=== PATIENT | female | born 1990 | race Caucasian/White ===

== ENCOUNTER → 2018-09-29 10:06 | Outpatient (CLI) | payer BC, SELFPAY ==
[2018-09-29 09:34] VITALS: BMI 40.7
[2018-09-29 11:21] LABS: Follicle Stimulating Hormone 4.1 mIU/mL
[2018-10-01 14:07] LABS: DHEA Sulfate 240.8 ug/dL (84.8-378.0)
[2018-10-02 16:55] LABS: Testosterone Free 1.9 pg/mL (0.0-4.2)
[2018-10-06 11:53] LABS: 17-Hydroxyprogesterone 34 ng/dL (.)
== END ==
PROVIDERS: Family Provider Family Medicine; PCP Family Medicine; Visit Provider Obstetrics & Gynecology
DX: N92.6 Irregular menstruation, unspecified (principal)
CPT/HCPCS: 36415; 82627; 83001; 83498; 84402; 82626

== ENCOUNTER → 2018-10-08 12:26 | Outpatient (CLI) | payer BC, SELFPAY ==
[2018-09-29 09:34] VITALS: BMI 40.7
--- NOTE | 2018-10-08 12:35 | US_ITS ---
STUDY: ULTRASOUND TRANSVAGINAL CLINICAL: Female, 28 years old. Irregular menses. TECHNIQUE: Transvaginal COMPARISON: None. FINDINGS: Normal uterine size measuring 6.8 cm in maximal craniocaudal dimension. There are no myometrial masses. The myometrium is slightly heterogenous. Normal endometrial thickness measuring 6.3 mm. There are no endometrial masses, and there is no fluid in the endometrial cavity. There are nabothian cysts present. Normal right ovary, measuring 3.4 x 2.3 x 2.1 cm. There are multiple follicles without a dominant cyst. Normal left ovary, measuring 3.2 x 2.1 x 2.3 cm. There are multiple follicles without a dominant cyst. There is no free fluid in the pelvis. Polycystic ovary disease: No. US/Transvaginal Non- IMPRESSION: Mildly heterogenous myometrium may be secondary to underlying adenomyosis. Electronically Signed: Jael Marrero MD at 16:09 EDT Tel , Service support ,
== END ==
PROVIDERS: Family Provider Family Medicine; PCP Family Medicine; Referring Provider Obstetrics & Gynecology; Visit Provider Obstetrics & Gynecology
DX: N92.6 Irregular menstruation, unspecified (principal)
CPT/HCPCS: 76830; 93976

== ENCOUNTER → 2020-10-10 13:34 | Outpatient (CLI) | payer BC, SELFPAY ==
[2018-09-29 09:34] VITALS: BMI 40.7
--- NOTE | 2020-10-10 14:05 | RAD_ITS ---
STUDY: X-RAY - CERVICAL SPINE REASON FOR EXAM: Female, 30 years old. NECK PAIN TECHNIQUE: 5 view(s) of the cervical spine were obtained. COMPARISON: None FINDINGS: Normal anterior atlantoaxial articulation. Normal odontoid process. Normal cervical lordosis. Normal vertebral bodies and endplates. Normal disc space heights. Normal visualized intervertebral neuroforamina. The soft tissue structures are unremarkable. RAD/Cerv Spine 2 or 3 Views IMPRESSION: Normal x-ray examination of the visualized cervical spine. Electronically Signed: Ulices Calderon DO at 22:47 EDT Tel , Service support ,
--- NOTE | 2020-10-10 14:10 | RAD_ITS ---
STUDY: X-RAY - LUMBAR SPINE REASON FOR EXAM: Female, 30 years old. BACK PAIN TECHNIQUE: 3 view(s) of the lumbar spine were obtained. COMPARISON: None FINDINGS: Normal lumbar lordosis. There is no substantial scoliosis. There is a normal alignment of the vertebrae. Normal vertebral bodies and endplates. Normal disc space heights. The soft tissue structures are unremarkable. RAD/Lumbar Spine 2 or 3 Views IMPRESSION: Normal x-ray examination of the lumbar spine. Electronically Signed: Ulices Calderon DO at 22:47 EDT Tel , Service support ,
[2020-10-10 14:46] LABS: Amphetamine Urine VISTA NEGATIVE (<1000 ng/mL); Barbiturate Urine VISTA NEGATIVE (< 200 ng/mL); Benzodiazepine Urine VISTA NEGATIVE (< 200 ng/mL); Cocaine Urine VISTA NEGATIVE (< 300 ng/mL); Ecstacy Urine VISTA POSITIVE (< 500 ng/mL); Methadone Urine VISTA NEGATIVE (< 300 ng/mL); PCP Urine VISTA NEGATIVE (< 25 ng/mL); THC Urine VISTA NEGATIVE (< 50 ng/mL); Vista UDS pH Range 6
== END ==
PROVIDERS: PCP Family Medicine; Referring Provider Anesthesiology Pain Medicine; Visit Provider Anesthesiology Pain Medicine
DX: M54.2 Cervicalgia (principal); M54.9 Dorsalgia, unspecified; F11.20 Opioid dependence, uncomplicated
CPT/HCPCS: 72040; 72100; 80307

== ENCOUNTER 2021-01-16 08:30 | Outpatient (RCR) | payer BC, OTHER, SELFPAY ==
[2018-09-29 09:34] VITALS: BMI 40.7
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
--- NOTE | 2021-01-03 14:02 | HP.PTREVAL ---
Dr. Pia Burns MD, It has been my pleasure to treat KYM KEVIN over the last 10 visits for LUMBAR AND LUMBOSACRAL RADICULOPATHY.. Please see the progress note below for an update on the physical therapy plan of care! Subjective: PATIENT REPORTS SHE STACKED HER DAYS AT WORK AND SHE IS HAVING A LOT OF PAIN. BETWEEN WORK, PAIN AND LIFE HAS NOT BEEN DOING HER HOME EX'S. PATIENT REPORTS SHE IS STILL BETTER OVER-ALL SINCE STARTING PT. DEFINATELY HAS DECREASED PAIN WHEN SHE IS ABLE TO FOLLOW HOME INSTRUCTIONS AND DO HEP BUT LATELY LIFE HAS BEEN TOO BUSY. INFORMATION GATHERED TODAY FOR NECK ASSESSMENT: DX: NECK PAIN. Present symptoms: NECK AND FALGUNI SHLD PAIN. FALGUNI UE PAIN, NUMBNESS AND TINGLING TO HANDS AND FINGERS. SOMETIMES SHOOTING PAINS. I DROP STUFF A LOT. Present since: 2013. Pain Scale: Worst - 10/10 Least - 4/10. Commenced as a result of: SLIPPED AND FELL INTO PANTRY ON LEFT SHLD. Symptoms at onset: L SHLD. Worse: SITTING UP, JUST THE WEIGHT OF MY NECK AND HEAD ON MY SHOULDERS HURT. Better: LYING DOWN WITH NECK SUPPORTED ON PILLOW. Disturbed sleep: YES. Previous history/Previous treatment: NO NECK SURGERY. PT HERE AT [facility]. MASSAGE. CHIROPRACTOR - LAST VISIT APPROX 2017. INTRAMUSCULAR UT INJECTIONS AFLGUNI NECK OCTOBER 2020 AND ONE KARLOS C6C7 DECEMBER [address] BURNS WITH INCREASED PAIN AFTER. DOES NOT FEEL THE KARLOS HELPED. STATES SHE IS STILL HAVING A LOT OF EXACERBATIONS. CONSULT WITH DR. MOROCHO - REFERRED TO [facility] BUT PATIENT DID NOT FOLLOW THROUGH. Dizziness: YES. Tinnitis: SOMETIMES. PATIENT HAS MINERES DZ. Nausea: YES. Shortness of Breath: ASTHMA. Difficulty Swollowing: REFLUX? PATIENT REPORTS SHE HAS HAD A SCOPE. Imaging: NO MRI. RECENT NECK X-RAYS - NORMAL PER PATIENT REPORT. Objective/Function: Sitting Posture/Standing Posture: FH. RS'S. Active Correction of posture: WORSE. 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 FALGUNI UE'S 5/5 WITH MMT'ING EXCEPT SHLD GIRDLES 4-/5. Sensory deficit: FALGUNI UE LIGHT TOUCH SENSATION INTACT AND SYMMETRICAL TODAY. ROM deficit: TIGHTNESS IN FALGUNI SHLDS WITH APPROX 25% DECREASED ELELVATION. Reflexes: FALGUNI UE'S 2/3. Dural Signs: POSITIVE FALGUNI UE'S. Cervical Mvmt Loss: Flex: MIN. Pro: NIL. Ext: MOD. Ret: MOD. RSB: MOD. LSB: MOD. R Rot: MOD. L Rot: MIN. PATIENT C/O INCREASED PAIN WITH CERVICAL ROM TESTING ALL PLANES. Postural strength: POOR. Palpation: NO ACUTE PAIN WITH LIGHT PALPATION OF UPPER THORACIC AND CERVICAL SPINE BUT INCREASED FALGUNI CERVICAL MUSCULATURE THROUGHOUT. TREATMENT: NEUROMUSCULAR REEDUCATION - INTRO TO RETRAINING OF MVMT AND POSTURE FOR SITTING, LYING AND STANDING ACTIVITIES. PATIENT TOLERATED ALL INTERVENTIONS WELL TODAY AND REPORTED DECREASED PAIN POST SESSION. Plan Plan: CONSIDER US AND E-STIM TO CERVICAL REGION. CERVICAL STRETCHING AND STRENGTHENING TOLERATED. SCAPULAR STRENGTHENING AND STABILITY EX. US TO LOW BACK. POSTURE CORRECTION/STRENGTHENING, INSTRUCTION IN APPROPRIATE BODY MECHANICS AND ACTIVITY MODIFICATIONS. DLS STARTING WITH A NEUTRAL SPINE PROGRESSING ROM TOLERATED. FALGUNI LE ROM, STRETCHING AND STRENGTHENING. HEP INSTRUCTION. Goals Goal 1:: DECREASE C/O NECK, UE, LOW BACK AND FALGUNI LE SX'S. Goal Time Frame: 4-6 Weeks Goal 2:: IMPROVE SITTING, STANDING, WALKING, PERSONAL CARE, LIFTING, SLEEP, SOCIAL LIFE, TRAVEL, WORK AND HOMEMAKING FUNCTION Goal Time Frame: 4-6 Weeks Goal 3:: INSTRUCT IN PROPHYLAXIS Goal Time Frame: 4-6 Weeks Goal Time Frame: 4-6 Weeks Anticipated Interventions Please do not hesitate to contact me at [phone] by phone or if you have questions or concerns regarding this new plan of care! Sincerely, Sarah Trotter, PT, Cert MDT
--- NOTE | 2021-01-16 09:29 | HP.PTDCSUM ---
It has been my pleasure to treat KYM KEVIN referred by Dr. Pia Burns MD, with the diagnosis of LUMBAR AND LUMBOSACRAL RADICULOPATHY. for a total of 16 visit(s). Discharge Date: 01/16/21 Please see the following information for a summary of their discharge status. Subjective: PATIENT REPORTS HER 12 YEAR OLD DAUGHTER IS STILL HELPING HER WITH THE SAME THINGS LIKE VACUUMING. STATES SHE HASN'T TRIED TO GO BACK TO DOING SOME THINGS FOR FEAR OF INCREASING PAIN. PATIENT REPORTS THE SHOT FOR HER JOINTS BY DR. BURNS REALLY REALLY HELPED BUT IT HAS WORN OFF. STILL WAITING FOR INSURANCE APPROVAL OF NEW MEDICINE. GOT OFF WORK YESTERDAY MORNING AND DOESN'T GO BACK TO WORK UNTIL THURSDAY. 50% IMPROVEMENT IN ARMS AND LEGS IN TERMS OF NUMBNESS AND TINGLING SINCE STARTING PT. PATIENT REPORTS THAT NONE OF HER SX'S ARE WORSE SINCE STARTING PT. PATIENT REPORTS SHE FEELS LIKE SHE NEEDS MORE CONTROL OF HER PAIN TO BE ABLE TO GET MORE OUT OF PT. STATES SHE DOESN'T FEEL LIKE SHE CAN PROGRESS MORE WITH PT RIGHT NOW BECAUSE OF HER PAIN. PATIENT REPORTS SHE WANTS TO GET AN MRI OF HER NECK AND LOWER BACK. STATES SHE FEELS SHE SHOULDN'T BE HAVING THE PAIN SHE IS HAVING AND SHE FEELS LIKE SOMETHING IS BEING MISSED.FOLLOW UP PENDING WITH DR. BURNS 01/31/21. LOW BACK Pain Intensity (Out of 10): 5 R LE Pain Intensity (Out of 10): 4 L LE Pain Intensity (Out of 10): 4 NECK PAIN Pain Intensity (Out of 10): 7 SHOULDER PAIN Pain Intensity (Out of 10): 7 % Improvement: 30 Objective/Function: PATIENT WAS SEEN TODAY FOR RE-ASSESSMENT OF PROGRESS TOWARD THE SET PT GOALS AND THE NEED FOR FURTHER PHYSICAL THERAPY VS READINESS FOR DISCHARGE. PATIENT IS CONTINUING TO REPORT HIGH PAIN LEVELS IN HER UPPER BODY AND LOWER BODY. SHE HAS BEEN PLEASANT AND COOPERATIVE WITH PHYSICAL THERAPY. SHE DEMO'S A GOOD UNDERSTANDING OF HER HEP AND PROGRESSION HAS BEEN LIMITED BY PAIN. SHE IS NOT CONTINUING TO IMPROVE AND IN SOME WAYS SHE IS WORSE TODAY COMPARED TO INITAL EXAMS OF HER BACK AND NECK. PATIENT MAY BE A GOOD CANDIDATE TO RETURN TO PT IF SHE IS ABLE TO GET PAIN RELIEF FROM OTHER PROCEEDURES. BACK OSWESTRY SCORE IS WORSE TODAY THAN LAST RE-CHECK. UPON EXAM TODAY: INDEP GAIT AND TRANSFERS INTO PT TODAY BUT BOTH ARE GUARDED. Motor deficit: FALGUNI LE'S 5/5 WITH MMT'ING. Sensory deficit: FALGUNI LE LIGHT TOUCH SENSATION APPEARS INTACT AND SYMMETRICAL INCLUDING RIGHT THIGH TODAY. ROM deficit: TIGHT FALGUNI LE HS'S AND GASTROC SOLEUS COMPLEX'S. Reflexes: UNABLE TO ELICIT FALGUNI LE DTR'S. Dural Signs: POSITIVE FALGUNI LE'S. Lumbar mvmt loss: flex - MOD. ext -MOD TO EYAD. R SG - MOD. L SG - MOD. PATIENT HESITANT TO DO LUMBAR ROM TESTING AND REPORTS FEELING A PULL IN HER LOW BACK AT THE END OF THE AVAILABLE ROM. Core strength: POOR. Palpation: NO ACUTE LUMBOSACRAL TENDERNESS TODAY. OTHER: PATIENT ABLE TO HEEL WALK AND TOE WALK. 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 FALGUNI UE'S 5/5 WITH MMT'ING EXCEPT SHLD GIRDLES 4-/5. Sensory deficit: FALGUNI UE LIGHT TOUCH SENSATION INTACT AND SYMMETRICAL TODAY. ROM deficit: TIGHTNESS IN FALGUNI SHLDS WITH APPROX 25% DECREASED ELELVATION. Reflexes: FALGUNI UE'S 2/3. Dural Signs: POSITIVE FALGUNI UE'S. Cervical Mvmt Loss: Flex: MIN. Pro: NIL. Ext: MOD. Ret: MOD. RSB: MOD. LSB: MOD. R Rot: MOD. L Rot: MOD. PATIENT C/O INCREASED PAIN WITH CERVICAL ROM TESTING ALL PLANES. Postural strength: POOR. Palpation: C/O PAIN WITH LIGHT PALPATION OF UPPER THORACIC AND CERVICAL SPINE AND INCREASED FALGUNI CERVICAL MUSCULATURE THROUGHOUT - PATIENT RELATES HER PAIN WITH PALPATION TODAY TO THE RECENT MASSAGE SHE RECEIVED AND QUESTIONS IF THERE IS BRUSING. NO VISIBLE BRUISING. POSITIVE UE AND LE DURAL SIGNS LEFT > RIGHT. Goal 1:: DECREASE C/O NECK, UE, LOW BACK AND FALGUNI LE SX'S. Goal Progress: Not Progressing Goal 2:: IMPROVE SITTING, STANDING, WALKING, PERSONAL CARE, LIFTING, SLEEP, SOCIAL LIFE, TRAVEL, WORK AND HOMEMAKING FUNCTION Goal Progress: Not Progressing Goal 3:: INSTRUCT IN PROPHYLAXIS Goal Progress: Not Progressing Plan: D/C TO HEP. PATIENT AGREEABLE. If there are questions or concerns regarding this patient's physical therapy, please feel free to call me at [phone]. Thank you for the referral of this patient. Sincerely, Sarah Trotter, PT, Cert MDT
== END 2021-01-16 19:00 | disposition home or self-care (01) ==
LOC: PT 08:30
PROVIDERS: PCP Family Medicine; Referring Provider Anesthesiology Pain Medicine; Visit Provider Anesthesiology Pain Medicine
DX: M54.16 Radiculopathy, lumbar region (principal); M54.17 Radiculopathy, lumbosacral region
CPT/HCPCS: 97014; 97035; 97110; 97112; 97162; 97164; 97530; G0283

== ENCOUNTER → 2021-05-18 07:32 | Outpatient (CLI) | payer OTHER, SELFPAY ==
--- NOTE | 2021-05-18 07:41 | MRI_ITS ---
STUDY: MRI CERVICAL SPINE WITHOUT CONTRAST REASON FOR EXAM: Female, 31 years old. NECK AND LEFT ARM PAIN TECHNIQUE: Standardized fat and water weighted pulse sequences were obtained in the sagittal and axial planes. COMPARISON: X-ray dated 10/10/2020 FINDINGS: Normal foramen magnum and brainstem-cervical cord junction. Normal cervical lordosis. C2-3: Normal endplates. Normal disc height, signal and morphology. Normal central canal and intervertebral neural foramina. C3-4: There is minimal disc space narrowing and endplate spondylosis. There is no significant disc herniation, central canal or foraminal stenosis C4-5: There is minimal disc space narrowing and endplate spondylosis. There is no significant disc herniation, central canal or foraminal stenosis C5-6: There is mild disc space narrowing and endplates spondylosis. Mild disc osteophyte complex with moderate central canal stenosis. Uncovertebral and facet arthropathy with mild right and moderate left foraminal stenosis. C6-7: There is mild disc space narrowing and endplates spondylosis mild disc osteophyte complex with mild central canal stenosis. Uncovertebral and facet arthropathy with moderate right and mild left foraminal stenosis. C7-T1: Normal endplates. Normal disc height, signal and morphology. Normal central canal and intervertebral neural foramina. Normal cervical cord. MRI/Spine Cervical (Routine) IMPRESSION: C5/C6: Moderate central canal stenosis. Mild right and moderate left foraminal stenosis. C6/C7: Moderate right and mild left foraminal stenosis. Electronically Signed: Blake Cid MD at 9:49 EDT Tel , Service support ,
== END ==
PROVIDERS: Visit Provider Anesthesiology Pain Medicine
DX: M54.2 Cervicalgia (principal); M79.602 Pain in left arm
CPT/HCPCS: 72141

== ENCOUNTER → 2021-11-08 | Outpatient (CLI) | payer OTHER, SELFPAY ==
--- NOTE | 2021-11-08 07:42 | MRI_ITS ---
STUDY: MRI CERVICAL SPINE WITHOUT CONTRAST REASON FOR EXAM: Female, 31 years old. NECK PAIN, R ARM/FINGERS BURNING X 2 WEEKS DIRECTLY AFTER EPIDURAL INJ TECHNIQUE: Standardized fat and water weighted pulse sequences were obtained in the sagittal and axial planes. COMPARISON: MRI of the cervical spine dated May 18, 2021 FINDINGS: Normal foramen magnum and brainstem-cervical cord junction. Normal craniovertebral junction. Normal anterior atlantoaxial articulation. Normal odontoid process. There is straightening of the normal cervical lordosis. Normal vertebral bodies and posterior osseous elements. C2-3: Normal endplates. Normal disc height, signal and morphology. Normal central canal and intervertebral neural foramina. C3-4: Normal endplates. Normal disc height, signal and morphology. Normal central canal and intervertebral neural foramina. C4-5: Normal endplates. Normal disc height, signal and morphology. Normal central canal and intervertebral neural foramina. C5-6: Mild to moderate disc space narrowing with a diffuse disc disc bulge/spur complex causing compression on the anterior aspect of the cord and mild to moderate central canal stenosis moderate left foraminal stenosis with nerve root compression is also present secondary to uncovertebral hypertrophy and osteophytosis. Mild right foraminal stenosis. C6-7: Normal endplates. Mild disc space narrowing with diffuse annular bulging and superimposed midline disc protrusion resulting and mild central canal stenosis and mass effect on the cord without direct compression. Mild to moderate right foraminal stenosis due to uncovertebral hypertrophy results in mild nerve root compression/impingement. Normal left neural foramen. C7-T1: Normal endplates. Normal disc height, signal and morphology. Normal central canal and intervertebral neural foramina. Normal cervical cord. There is no demonstrated cervical cord syrinx cavity. Normal visualized soft tissue structures. MRI/Spine Cervical (Routine) IMPRESSION: 1. Multilevel degenerative changes, as described above. 2. Prominent disc spur complex causing compression anterior aspect of the cord and mild to moderate central canal stenosis at C5-C6 3. Mild central canal stenosis with mass effect on the cord without direct compression at C6-C7. No significant interval change from the prior study Electronically Signed: Marcelino Rogers MD at 11:23 EDT ,
== END | disposition home or self-care (01) ==
LOC: MRI 07:14
PROVIDERS: Referring Provider Anesthesiology Pain Medicine; Visit Provider Anesthesiology Pain Medicine
DX: M54.12 Radiculopathy, cervical region (principal)
CPT/HCPCS: 72141

== ENCOUNTER → 2022-02-12 | Outpatient (CLI) | payer OTHER, SELFPAY ==
[2022-02-12 11:28] LABS: BUP Internal Control LINE = VALID (VALID)
[2022-02-12 11:29] LABS: Amphetamine Urine VISTA NEGATIVE (<1000 ng/mL); Barbiturate Urine VISTA NEGATIVE (< 200 ng/mL); Benzodiazepine Urine VISTA NEGATIVE (< 200 ng/mL); Buprenorphine Drug Screen Positive (<10 ng/mL); Cocaine Urine VISTA NEGATIVE (< 300 ng/mL); Ecstacy Urine VISTA POSITIVE (< 500 ng/mL); Methadone Urine VISTA NEGATIVE (< 300 ng/mL); PCP Urine VISTA NEGATIVE (< 25 ng/mL); THC Urine VISTA POSITIVE (< 50 ng/mL); Vista UDS pH Range 5
== END | disposition home or self-care (01) ==
LOC: LAB 10:34
PROVIDERS: Referring Provider Anesthesiology Pain Medicine; Visit Provider Anesthesiology Pain Medicine
DX: F11.20 Opioid dependence, uncomplicated (principal)
CPT/HCPCS: 80307

== ENCOUNTER → 2022-02-25 | Outpatient (CLI) | payer OTHER, SELFPAY ==
[2022-02-25 09:53] LABS: Erythrocyte Sedimentation Rate 15 mm/hr (0-30)
[2022-02-25 10:25] LABS: Progesterone Level 6.27 ng/mL (See Comment); Vitamin B12 729 pg/mL (211-911); Vitamin D,25 Hydroxy 28.1 ng/mL
[2022-02-25 12:11] LABS: Estradiol 65.9 pg/mL; Ferritin 230 ng/mL (8-252); Free T3 3.1 pg/mL (2.18-3.98); Iron 59 ug/dL (50-170); Rheumatoid Factor < 10.0 IU/mL (<15); Thyroid Stim Hormone (TSH) 1.52 uIU/mL (0.358-3.74)
[2022-02-26 13:18] LABS: ANTINUCLEAR ANTIBODIES DIRECT Negative (Negative)
[2022-02-28 13:16] LABS: CCP IgG Antibodies 5 units (0-19)
== END | disposition home or self-care (01) ==
LOC: LAB 08:54
PROVIDERS: PCP Family Medicine; Referring Provider Family Medicine; Visit Provider Family Medicine
DX: E03.9 Hypothyroidism, unspecified (principal); R53.83 Other fatigue; D64.9 Anemia, unspecified; E55.9 Vitamin D deficiency, unspecified; M25.50 Pain in unspecified joint; N93.8 Other specified abnormal uterine and vaginal bleeding
CPT/HCPCS: 36415; 82306; 82607; 82670; 82728; 83540; 84144; 84439; 84443; 84481; 85652; 86038; 86140; 86200; 86225; 86235; 86431

== ENCOUNTER → 2022-07-31 | Outpatient (CLI) | payer OTHER, SELFPAY ==
[2022-07-31 12:33] LABS: Erythrocyte Sedimentation Rate 14 mm/hr (0-30); Hemoglobin 14.6 g/dL (12.0-15.0); Mean Corpuscular Hgb 31.1 pg (27.0-32.0); Mean Corpuscular Volume 91.7 fL (81-99); Platelet Count 291 K/mm3 (150-450); RBC Distribution Width CV 12.8 % (11.6-14.6); RBC Distribution Width SD 42.8 fl (35.1-43.9); Red Blood Count 4.69 M/mm3 (4.2-5.4); White Blood Count 9.3 K/mm3 (4.4-11.0)
[2022-07-31 12:54] LABS: Vitamin D,25 Hydroxy 22.4 ng/mL
[2022-07-31 13:07] LABS: AST(SGOT) 19 U/L (15-37); Alanine Aminotransfer ALT/SGPT 32 U/L (13-56); Albumin, Serum 3.8 g/dL (3.2-5.0); Alkaline Phosphatase 56 U/L (45-117); Anion Gap 4 (5-15); BUN 13 mg/dL (7-18); BUN/Creat Ratio 14.3 RATIO (10-20); Calcium,Total 9.2 mg/dL (8.5-10.1); Chloride 103 mmol/L (98-107); Cholesterol 285 mg/dL (200); Creatinine, Serum 0.91 mg/dL (0.55-1.02); EST Glomerular Filtration Rate 76 mL/min (>60); Est Glom Filt Rate - Afr Amer 91 mL/min (>60); Globulin 3.8 g/dL (2.2-4.2); Glucose 102 mg/dL (74-106); High Density Lipoprotein 69 mg/dL; Potassium 4.2 mmol/L (3.5-5.1); Protein, Total 7.6 g/dL (6.4-8.2); Sodium Level 137 mmol/L (136-145); Triglycerides 164 mg/dL; Very Low Density Lipoprotein 33 mg/dL (5-40)
== END | disposition home or self-care (01) ==
LOC: LAB 11:49
PROVIDERS: PCP Family Medicine; Visit Provider Family Medicine
DX: E88.81 Metabolic syndrome and other insulin resistance (principal); E78.1 Pure hyperglyceridemia; Z51.81 Encounter for therapeutic drug level monitoring; E55.9 Vitamin D deficiency, unspecified
CPT/HCPCS: 36415; 80053; 80061; 82306; 85007; 85027; 85652; 86140

== ENCOUNTER 2022-12-28 02:47 | Emergency (ER) | payer OTHER, SELFPAY ==
[2022-12-28 02:48] VITALS: BP 168/102; PULSE 103; RESP 22; TEMP 36.4; O2SAT 98; BMI 39.2
--- NOTE | 2022-12-28 03:07 | CT_ITS ---
EXAM: CT ABDOMEN AND PELVIS WITHOUT INTRAVENOUS CONTRAST CLINICAL INDICATION: Kidney Stone TECHNIQUE: Helically acquired images were obtained of the abdomen and pelvis without intravenous contrast. This CT exam was performed using one or more of the following dose reduction techniques: automated exposure control, adjustment of the mA and/or kV according to patient size, and/or use of iterative reconstruction technique. RADIATION DOSE: CTDIvol = 18.73 mGy, DLP = 930.97 mGy-cm COMPARISON: No relevant prior studies available. FINDINGS: LOWER THORAX: Unremarkable. Lung bases are clear. No cardiomegaly. No significant pericardial effusion. ABDOMEN: LIVER: Unremarkable. Homogeneous. GALLBLADDER AND BILE DUCTS: Unremarkable. No calcified gallstones. No gallbladder distention or wall edema. No intra- or extrahepatic biliary ductal dilation. PANCREAS: Unremarkable. No focal cystic mass. SPLEEN: Unremarkable. Normal size without focal cystic or solid mass. ADRENALS: Unremarkable. No nodules. KIDNEYS AND URETERS: Mild prominence of the right ureter. No dilatation of the right renal collecting system. Probable 1 mm stone in the right ureterovesical junction. At least 3 nonobstructing calculi in the right kidney and one nonobstructing calculus in the left kidney. Normal renal size and position. STOMACH AND BOWEL: Unremarkable. No stomach or bowel distention. No focal inflammatory change. PELVIS: APPENDIX: No evidence of acute appendicitis. BLADDER: Unremarkable. REPRODUCTIVE: Right ovarian cyst measuring 3 cm. Left ovarian cyst measuring 3.9 cm. ABDOMEN and PELVIS: INTRAPERITONEAL SPACE: Unremarkable. No ascites or other fluid collection. No free air. BONES/JOINTS: Unremarkable. No suspicious lytic or blastic abnormality. SOFT TISSUES: Unremarkable. No discrete abdominal or pelvic wall hernia. VASCULATURE: Unremarkable. Abdominal aorta is non-dilated. LYMPH NODES: Unremarkable. No enlarged lymph nodes. CT/Abdomen/Pelvis without Cont IMPRESSION: 1. Mild prominence of the right ureter. No dilatation of the right renal collecting system. Probable 1 mm stone in the right ureterovesical junction. 2. At least 3 nonobstructing calculi in the right kidney and one nonobstructing calculus in the left kidney. 3. Right ovarian cyst measuring 3 cm. Left ovarian cyst measuring 3.9 cm. No follow-up is necessary. Electronically Signed: Dante Herrera MD at 5:00 EDT ,
--- NOTE | 2022-12-28 03:08 | EDS_ITS ---
HPI History of Present Illness Chief Complaint: Flank Pain Narrative Narrative: 32-year-old female past medical history of previous kidney stones, last being in or around 2018 presents with sudden onset of right flank pain. She states it started out as crampy UTI type symptoms for which she took Azo. Started almost 10 hours ago. She then developed right-sided flank pain as if it feels as if her insides were ripping. She has pain in her right flank radiating towards the front. Past medical history includes asthma and the previous ureterolithiasis. However, she has not seen a urologist in the past. She denies any exacerbating or alleviating factors. No gross hematuria. She has history of irregular menses as well. [facility] Medical History Anxiety Asthma GERD (gastroesophageal reflux disease) Hypertension Home Medications adapalene 0.1 %-benzoyl peroxide 2.5 % topical gel with pump (Epiduo) 1 applic topical DAILY 09/29/18 [History Last Taken Unknown] albuterol sulfate 90 mcg/actuation aerosol inhaler (ProAir HFA) 1 puff inhalation Q6H PRN 09/29/18 [History Last Taken Unknown] clindamycin phosphate 1 % topical solution 1 applic topical DAILY 09/29/18 [History Last Taken Unknown] cyclobenzaprine 10 mg tablet 10 mg PO HS 09/29/18 [History Last Taken Unknown] labetalol 100 mg tablet 100 mg PO BID 09/29/18 [History Last Taken Unknown] loratadine 10 mg disintegrating tablet (Alavert) 10 mg PO DAILY 09/29/18 [History Last Taken Unknown] montelukast 10 mg tablet (Singulair) 10 mg PO QPM 09/29/18 [History Last Taken Unknown] multivitamin,po-zhon-qpbvhcxs (Complete Multivitamin tablet) 1 tab PO DAILY 09/29/18 [History Last Taken Unknown] rabeprazole 20 mg tablet,delayed release (AcipHex) 20 mg PO DAILY 09/29/18 [History Last Taken Unknown] tizanidine 4 mg capsule 4 mg PO QHS PRN Pain 09/29/18 [History Last Taken Unknown] buprenorphine HCl 75 mcg buccal film 75 mcg buccal BID 11/27/21 [History Last Taken Unknown] clobetasol 0.05 % topical cream 1 applic topical DAILY PRN 11/27/21 [History Last Taken Unknown] fluoride (sodium) 1.1 % dental cream 1 applic dental 11/27/21 [History Last Taken Unknown] gabapentin 300 mg capsule 300 mg PO BID 11/27/21 [History Last Taken Unknown] ketoconazole 2 % topical cream 1 applic topical DAILY PRN 11/27/21 [History Last Taken Unknown] hydrocodone-acetaminophen 5-325mg 5mg-325mg 1 tab PO Q6H PRN pain 3 days #12 tabs 12/28/22 [Rx Last Taken Unknown] ketorolac 10 mg tablet 10 mg PO TID PRN pain 5 days #15 tabs 12/28/22 [Rx Last Taken Unknown] tamsulosin 0.4 mg capsule (Flomax) 0.4 mg PO QHS #10 caps 12/28/22 [Rx Last Taken Unknown] Allergy/AdvReac Type Severity Reaction Status Date / Time chlorhexidine Allergy Mild Other Verified 01/06/22 08:32 latex Allergy Mild Other Verified 01/06/22 08:32 Surgical History Status post tonsillectomy and adenoidectomy Social History Smoking Status: Never smoker alcohol intake: current details: social substance use type: does not use caffeine: Yes what type of physical activity do you participate in: walking seatbelt use: always do you feel safe at home: Yes additional social history: Jose Castaneda 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 HEENT: No sore throat. No neck pain. No loss of vision. No rhinorrhea. Cardiovascular: No chest pain. No palpitations. No pedal edema. Respiratory: No cough, no shortness of breath. Abdominal: No abdominal pain. No nausea. No vomiting. Genitourinary: Positive dysuria. No hematuria. Right flank pain radiating towards front. Musculoskeletal: No myalgias. No arthralgias. Neurologic: No headaches. No dizziness. No lightheadedness. Skin: No rash. No change in color. Psychiatric: No depression. No anxiety. EXAM Physical Exam Narrative Exam Narrative: Afebrile. Vital signs noted. Appears uncomfortable. Standing. HEENT: Normocephalic. Atraumatic. PERRL, EOMI. Neck soft and supple. No point tenderness or step off. Cardiovascular: Regular rate and rhythm with intermittent tachycardia. No murmurs, rubs, or gallops appreciated. Respiratory: No tachypnea. Lungs clear to auscultation bilaterally. Gastrointestinal: Abdomen soft, nontender, with normoactive bowel sounds. No rebound or guarding. Neurological: Awake. Alert. Nonfocal, nonlateralizing. Skin: No rash. Normal color. No pallor. Musculoskeletal: No pedal edema. Full range of motion extremities. Const Vital Signs: 12/28/22 02:48 Temperature 97.6 F L Temperature Source Oral Pulse Rate 103 H Respiratory Rate 22 H Blood Pressure 168/102 H Blood Pressure Mean 124 Pulse Ox 98 Oxygen Delivery Method Room Air MDM MDM MDM Narrative Medical decision making narrative: I reviewed the patient's prior records. Suspicion is high for ureterolithiasis. She will be started on IV fluids, and administered Toradol and Dilaudid for analgesia. I will check a serum along with CBC and BMP, and urinalysis. I do feel CT imaging is indicated. I reviewed her laboratory work, she has normal white count of 9.7, hemoglobin normal at 14.1, BUN normal at 14 with creatinine normal at 0.94, serum is negative. I reviewed the CT radiology report which shows at least 3 stones in the right kidney that are nonobstructive, but she does have a 1 mm obstructing stone with mild hydroureter at the right ureterovesicular junction. I reviewed her urinalysis and while she is nitrite positive, she has 0-5 WBCs. She does not have a white count or fever here, I do not feel that antibiotics are indicated but I will send it for urine culture. This point in time, she did require another dose of Dilaudid prior to discharge, but I feel she can be discharged safely home to follow-up with urology. She was written prescriptions for Flomax, Toradol, and [place]. She is to return with fever, increased pain, new or worsening symptoms. Disposition is discharged home in stable condition. History & Record Review Discussion w/independent historian: Patient Additional record(s) reviewed:: Prior ED visit Lab Data Attestation: I reviewed the patient's lab results. Labs: Laboratory Results - last 24 hr 12/28/22 12/28/22 12/28/22 03:15 03:15 03:15 WBC 9.7 RBC 4.56 Hgb 14.1 Hct 41.1 MCV 90.1 MCH 30.9 MCHC 34.3 RDW Std Deviation 42.0 RDW Coeff of Wilian 12.9 Plt Count 280 MPV 9.4 Immature Gran % (Auto) 0.400 Neut % (Auto) 67.9 Lymph % (Auto) 23.6 [place] % (Auto) 6.1 Eos % (Auto) 1.7 Baso % (Auto) 0.3 Absolute Neuts (auto) 6.6 Absolute Lymphs (auto) 2.28 Nucleated RBC % 0 Sodium 139 Potassium 3.9 Chloride 104 Carbon Dioxide 28.0 Anion Gap 7 BUN 14 Creatinine 0.94 Estim Creat Clear Calc 76.60 Est GFR (MDRD) Af Amer 88 Est GFR (MDRD) Non-Af 73 BUN/Creatinine Ratio 15.0 Glucose 158 H Calcium 9.6 Serum , Qual NEGATIVE Urine Color Urine Clarity Urine pH Ur Specific [place] Urine Protein Urine Glucose (UA) Urine Ketones Urine Occult Blood Urine Nitrite Urine Bilirubin Urine Urobilinogen Ur Leukocyte Esterase Urine RBC Urine WBC Ur Squamous Epith Cells Calcium Oxalate Crystal Urine Bacteria Urine Mucus 12/28/22 04:45 WBC RBC Hgb Hct MCV MCH MCHC RDW Std Deviation RDW Coeff of Wilian Plt Count MPV Immature Gran % (Auto) Neut % (Auto) Lymph % (Auto) [place] % (Auto) Eos % (Auto) Baso % (Auto) Absolute Neuts (auto) Absolute Lymphs (auto) Nucleated RBC % Sodium Potassium Chloride Carbon Dioxide Anion Gap BUN Creatinine Estim Creat Clear Calc Est GFR (MDRD) Af Amer Est GFR (MDRD) Non-Af BUN/Creatinine Ratio Glucose Calcium Serum , Qual Urine Color Yellow Urine Clarity Clear Urine pH 5.0 Ur Specific [place] 1.030 Urine Protein 30 H Urine Glucose (UA) Normal Urine Ketones 5 H Urine Occult Blood 250 H Urine Nitrite Positive H Urine Bilirubin 1 H Urine Urobilinogen 1 H Ur Leukocyte Esterase 25 H Urine RBC 10-25 SEEN Urine WBC 0-5 SEEN Ur Squamous Epith Cells 0-5 SEEN Calcium Oxalate Crystal RARE Urine Bacteria RARE Urine Mucus 0 SEEN Radiography Diagnostic Testing: Clinical Impression(s) from Imaging Studies Abdomen/Pelvis CT 12/28/22 03:07 IMPRESSION: 1. Mild prominence of the right ureter. No dilatation of the right renal collecting system. Probable 1 mm stone in the right ureterovesical junction. 2. At least 3 nonobstructing calculi in the right kidney and one nonobstructing calculus in the left kidney. 3. Right ovarian cyst measuring 3 cm. Left ovarian cyst measuring 3.9 cm. No follow-up is necessary. Electronically Signed: Dante Herrera MD at 5:00 EDT , Discharge Plan Triage Chief Complaint: Flank Pain ED Provider: Neeraj Garcia Dx/Rx/DC Orders Clinical Impression: Ureterolithiasis, Flank pain, Kidney calculi Instructions: ED Kidney Stone w/ Colic Prescriptions: New tamsulosin [Flomax] 0.4 mg capsule 0.4 mg PO QHS Qty: 10 0RF ketorolac 10 mg tablet 10 mg PO TID PRN (Reason: pain) 5 Days Qty: 15 0RF hydrocodone-acetaminophen 5-325 mg tablet 1 tab PO Q6H PRN (Reason: pain) 3 Days Qty: 12 0RF No Action tizanidine 4 mg capsule 4 mg PO QHS PRN (Reason: Pain) cyclobenzaprine 10 mg tablet 10 mg PO HS rabeprazole [AcipHex] 20 mg tablet,delayed release (DR/EC) 20 mg PO DAILY labetalol 100 mg tablet 100 mg PO BID montelukast [Singulair] 10 mg tablet 10 mg PO QPM loratadine [Alavert] 10 mg tablet,disintegrating 10 mg PO DAILY adapalene-benzoyl peroxide [Epiduo] 0.1-2.5 % gel with pump 1 applic TOPICAL DAILY albuterol sulfate [ProAir HFA] 90 mcg/actuation HFA aerosol inhaler 1 puff INHALATION Q6H PRN clindamycin phosphate 1 % solution 1 applic TOPICAL DAILY Complete Multivitamin tablet 1 tab PO DAILY gabapentin 300 mg capsule 300 mg PO BID Label Comments: TAKE 1 CAPSULE BY MOUTHAFOUR TIMES A DAY buprenorphine HCl 75 mcg film 75 mcg buccal BID Label Comments: TAKE 1 FILM BUCCALLYCTWICE DAILY fluoride (sodium) 1.1 % cream 1 applic dental ketoconazole 2 % cream 1 applic topical DAILY PRN clobetasol 0.05 % cream 1 applic topical DAILY PRN Primary Care Provider: Ioana Bourgeois Referrals: Shannon Wilhelm MD [Med Staff - Active Staff] - As soon as possible Jayson Thomas MD [Med Staff - Active Staff] - As soon as possible Ioana Bourgeois DO [Primary Care Provider] - Disposition Disposition: Home, Self Care
[2022-12-28] MEDS: 0.9% Normal Saline 1,000 ML 250 ML IV (03:18)
[2022-12-28] MEDS: Ondansetron 4 MG/2 ML Vial IV (03:21)
[2022-12-28] MEDS: HYDROmorphone 1 MG/ML Syringe IV ×2 (03:23→05:13)
[2022-12-28] MEDS: Ketorolac 30 MG/ML Syringe IV (03:26)
[2022-12-28 03:42] LABS: Absolute Lymphocyte Count 2.28 X10^3/uL (0.83-4.51); Absolute Neutrophil Count 6.6 X10^3/uL (2.0-7.7); Basophil# 0.03 X10^3/uL; Basophil% 0.3 % (0-1); Eosinophil# 0.16 X10^3/uL; Eosinophils% 1.7 % (0-5); Hematocrit 41.1 % (37-47); Hemoglobin 14.1 g/dL (12.0-15.0); Lymphocyte # 2.28 X10^3/ul (0.83-4.51); Lymphocyte % 23.6 % (19-41); Mean Corp Hgb Conc 34.3 g/dL (32-36); Mean Corpuscular Hgb 30.9 pg (27.0-32.0); Mean Corpuscular Volume 90.1 fL (81-99); Mean Platelet Vol. 9.4 fl (6.2-12.0); Monocyte# 0.59 X10^3/uL; Monocyte% 6.1 % (0-10); NRBC Flagged by Analyzer 0 % (0-5); Neutrophil # 6.55 X10^3/uL (2.7-7.7); Neutrophil % 67.9 % (47-70); Platelet Count 280 K/mm3 (150-450); RBC Distribution Width CV 12.9 % (11.6-14.6); Red Blood Count 4.56 M/mm3 (4.2-5.4); White Blood Count 9.7 K/mm3 (4.4-11.0)
[2022-12-28 03:56] LABS: Anion Gap 7 (5-15); BUN 14 mg/dL (7-18); Calcium,Total 9.6 mg/dL (8.5-10.1); Chloride 104 mmol/L (98-107); Creatinine, Serum 0.94 mg/dL (0.55-1.02); EST Glomerular Filtration Rate 73 mL/min (>60); Est Glom Filt Rate - Afr Amer 88 mL/min (>60); Glucose 158 mg/dL (74-106); Potassium 3.9 mmol/L (3.5-5.1); Sodium Level 139 mmol/L (136-145)
[2022-12-28 04:24] LABS: Internal QC Validated? YES +Cl - CLEAR BKGD; Pregnancy, Serum, hCG Quali. NEGATIVE Negative
[2022-12-28 05:01] LABS: Mucous, Urine 0 SEEN /hpf (<or=2+)
[2022-12-28 05:03] LABS: Color, Urine Yellow (Yellow); Glucose, Dipstick Normal (Normal); Ketone-Dipstick 5 mg/dl (Negative); Leukocyte Esterase-Dipstick 25 /ul (Negative); Nitrite-Dipstick Positive (Negative); Occult Blood-Urine 250 /ul (Negative); Protein-Dipstick 30 mg/dl (Negative); Urine Clarity Clear (Clear); Urine Urobilinogen 1 mg/dl (Normal)
[2022-12-28 05:11] LABS: Bacteria RARE /hpf (None Seen); Calcium Oxalate Crystals Ur RARE /hpf (<or=2+); Red Blood Cells-Urine 10-25 SEEN /hpf (0-5); Squamous Epithelial Cells - UA 0-5 SEEN /hpf (5-10); Urine Bilirubin Dipstick 1 mg/dL (Negative); White Blood Cells 0-5 SEEN /hpf (0-5)
[2022-12-28 05:34] VITALS: BP 135/86; PULSE 98; RESP 18; O2SAT 98
== END 2022-12-28 05:42 | disposition home or self-care (01) ==
PROVIDERS: Emergency Provider Emergency Medicine; PCP Family Medicine; Visit Provider Emergency Medicine
DX: N20.2 Calculus of kidney with calculus of ureter (principal); I10 Essential (primary) hypertension; N20.1 Calculus of ureter; R10.9 Unspecified abdominal pain; J45.909 Unspecified asthma, uncomplicated; Z79.899 Other long term (current) drug therapy; K21.9 Gastro-esophageal reflux disease without esophagitis
CPT/HCPCS: 74176; 80048; 81001; 84703; 85025; 87086; 87088; 96361; 96374; 96375; 96376; 99283; A4216; J2405

== ENCOUNTER → 2023-01-01 | Outpatient (CLI) | payer OTHER, SELFPAY ==
[2023-01-01 13:52] LABS: Erythrocyte Sedimentation Rate 11 mm/hr (0-30)
[2023-01-01 13:53] LABS: Absolute Lymphocyte Count 1.81 X10^3/uL (0.83-4.51); Absolute Neutrophil Count 7.2 X10^3/uL (2.0-7.7); Basophil# 0.05 X10^3/uL; Basophil% 0.5 % (0-1); Eosinophil# 0.19 X10^3/uL; Eosinophils% 1.9 % (0-5); Hematocrit 41.9 % (37-47); Hemoglobin 14.5 g/dL (12.0-15.0); Lymphocyte # 1.81 X10^3/ul (0.83-4.51); Lymphocyte % 18.4 % (19-41); Mean Corp Hgb Conc 34.6 g/dL (32-36); Mean Corpuscular Hgb 31.4 pg (27.0-32.0); Mean Corpuscular Volume 90.7 fL (81-99); Mean Platelet Vol. 9.5 fl (6.2-12.0); Monocyte# 0.53 X10^3/uL; Monocyte% 5.4 % (0-10); NRBC Flagged by Analyzer 0 % (0-5); Neutrophil # 7.21 X10^3/uL (2.7-7.7); Neutrophil % 73.5 % (47-70); Platelet Count 288 K/mm3 (150-450); RBC Distribution Width CV 12.8 % (11.6-14.6); RBC Distribution Width SD 41.8 fl (35.1-43.9); Red Blood Count 4.62 M/mm3 (4.2-5.4); White Blood Count 9.8 K/mm3 (4.4-11.0)
[2023-01-01 14:32] LABS: ALB/GLOB Ratio 0.9 RATIO (0.9-2.4); AST(SGOT) 20 U/L (15-37); Alanine Aminotransfer ALT/SGPT 30 U/L (13-56); Albumin, Serum 3.5 g/dL (3.2-5.0); Alkaline Phosphatase 50 U/L (45-117); Anion Gap 7 (5-15); BUN 16 mg/dL (7-18); BUN/Creat Ratio 20.4 RATIO (10-20); Calcium,Total 8.9 mg/dL (8.5-10.1); Chloride 105 mmol/L (98-107); Cholesterol 199 mg/dL (200); Creatinine, Serum 0.78 mg/dL (0.55-1.02); EST Glomerular Filtration Rate 89 mL/min (>60); Est Glom Filt Rate - Afr Amer 108 mL/min (>60); Globulin 3.9 g/dL (2.2-4.2); Glucose 102 mg/dL (74-106); High Density Lipoprotein 49 mg/dL; Potassium 4.6 mmol/L (3.5-5.1); Protein, Total 7.4 g/dL (6.4-8.2); Sodium Level 137 mmol/L (136-145); Triglycerides 283 mg/dL; Very Low Density Lipoprotein 57 mg/dL (5-40)
[2023-01-01 14:33] LABS: Vitamin D,25 Hydroxy 60.2 ng/mL
== END | disposition home or self-care (01) ==
LOC: LAB 12:49
PROVIDERS: PCP Family Medicine; Referring Provider Family Medicine; Visit Provider Family Medicine
DX: E88.81 Metabolic syndrome and other insulin resistance (principal); E78.1 Pure hyperglyceridemia; Z51.81 Encounter for therapeutic drug level monitoring; E55.9 Vitamin D deficiency, unspecified
CPT/HCPCS: 36415; 80053; 80061; 82306; 85025; 85652; 86140

== ENCOUNTER → 2023-05-19 | Outpatient (CLI) | payer OTHER, SELFPAY ==
[2023-05-19 17:05] LABS: Hemoglobin A1c 5.2 % (3.8-5.6)
[2023-05-19 17:14] LABS: Follicle Stimulating Hormone 2.2 mIU/mL
[2023-05-23 21:07] LABS: Testosterone Free 1.8 pg/mL (0.0-4.2)
== END | disposition home or self-care (01) ==
LOC: LAB 16:33
PROVIDERS: PCP Family Medicine; Visit Provider Advanced Practice Midwife
DX: N91.2 Amenorrhea, unspecified (principal)
CPT/HCPCS: 36415; 82627; 83001; 83036; 84146; 84402; 84443; 82626

== ENCOUNTER → 2023-06-01 | Outpatient (CLI) | payer OTHER, SELFPAY ==
--- NOTE | 2023-06-01 10:25 | US_ITS ---
HISTORY: amenorrhea. TECHNIQUE: Transvaginal pelvic ultrasound was performed with lee scale and color Doppler evaluation. 68 images. COMPARISON: CT 12/28/2022. FINDINGS: UTERUS: 7.8 x 4.8 x 5.1 cm. Retroflexed and heterogeneous without focal lesion demonstrated. Nabothian cysts present in the cervix. ENDOMETRIAL THICKNESS: 7 mm. RIGHT OVARY: 1.9 x 2.4 x 3.5 cm with several small follicles. Volume of 8 cc. No adnexal masses LEFT OVARY: 2.1 x 2.2 x 3.4 cm with several small follicles. Volume of 8 cc. No adnexal masses FREE FLUID: None. US/Transvaginal Non- IMPRESSION: Mildly heterogeneous uterus without focal lesion demonstrated. Electronically Signed: Karen Dillon MD at 12:24 EST ,
== END | disposition home or self-care (01) ==
LOC: US 10:24
PROVIDERS: PCP Family Medicine; Referring Provider Advanced Practice Midwife; Visit Provider Advanced Practice Midwife
DX: N91.2 Amenorrhea, unspecified (principal)
CPT/HCPCS: 76830

== ENCOUNTER → 2023-09-07 | Outpatient (CLI) | payer OTHER, SELFPAY ==
[2023-09-07 12:39] LABS: Erythrocyte Sedimentation Rate 20 mm/hr (0-30)
[2023-09-07 12:40] LABS: Absolute Lymphocyte Count 2.31 X10^3/uL (0.83-4.51); Absolute Neutrophil Count 6.2 X10^3/uL (2.0-7.7); Basophil# 0.04 X10^3/uL; Basophil% 0.4 % (0-1); Eosinophils% 2.1 % (0-5); Hematocrit 41.4 % (37-47); Lymphocyte # 2.31 X10^3/ul (0.83-4.51); Lymphocyte % 24.3 % (19-41); Mean Corp Hgb Conc 33.8 g/dL (32-36); Mean Corpuscular Volume 91.8 fL (81-99); Mean Platelet Vol. 9.8 fl (6.2-12.0); Monocyte# 0.68 X10^3/uL; Monocyte% 7.2 % (0-10); NRBC Flagged by Analyzer 0 % (0-5); Neutrophil # 6.24 X10^3/uL (2.7-7.7); Neutrophil % 65.6 % (47-70); Platelet Count 314 K/mm3 (150-450); RBC Distribution Width SD 43.3 fl (35.1-43.9); Red Blood Count 4.51 M/mm3 (4.2-5.4); White Blood Count 9.5 K/mm3 (4.4-11.0)
[2023-09-07 13:09] LABS: ALB/GLOB Ratio 0.9 RATIO (0.9-2.4); AST(SGOT) 14 U/L (15-37); Alanine Aminotransfer ALT/SGPT 19 U/L (13-56); Albumin, Serum 3.7 g/dL (3.2-5.0); Alkaline Phosphatase 47 U/L (45-117); Anion Gap 3 (5-15); BUN 16 mg/dL (7-18); BUN/Creat Ratio 19.3 RATIO (10-20); CRP 9.69 mg/L (0.0-3.0); Calcium,Total 9.3 mg/dL (8.5-10.1); Chloride 110 mmol/L (98-107); Creatinine, Serum 0.83 mg/dL (0.55-1.02); EST Glomerular Filtration Rate 83 mL/min (>60); Est Glom Filt Rate - Afr Amer 101 mL/min (>60); Globulin 3.9 g/dL (2.2-4.2); Glucose 109 mg/dL (74-106); Potassium 3.7 mmol/L (3.5-5.1); Protein, Total 7.6 g/dL (6.4-8.2); Sodium Level 139 mmol/L (136-145)
[2023-09-07 13:20] LABS: Progesterone Level 7.83 ng/mL (See Comment); Vitamin B12 711 pg/mL (211-911); Vitamin D,25 Hydroxy 66.1 ng/mL
== END | disposition home or self-care (01) ==
LOC: BFHLAB 09:51
PROVIDERS: Advanced Practice Midwife; PCP Family Medicine; Visit Provider Family Medicine
DX: Z51.81 Encounter for therapeutic drug level monitoring (principal); E53.8 Deficiency of other specified B group vitamins; R11.0 Nausea; R11.10 Vomiting, unspecified; N91.2 Amenorrhea, unspecified
CPT/HCPCS: 80053; 82306; 82607; 84144; 85025; 85652; 86140

== ENCOUNTER → 2023-09-14 | Outpatient (CLI) | payer OTHER, SELFPAY ==
--- OUTSIDE RECORDS SUMMARY | 2023-09-14 19:36 | XMS RPT_ITS | CCD ---
Author Name Unknown Address [address] [place] [address] Organization [facility] Care Team Providers Care Lang Interpreter Name Role Phone Nicolas Gaytan Unavailable Unavailable Lucila, Nicolas Anand Unavailable Unavailable Allergies Allergy Classification Reported Allergen(s) Allergy Type Date of Onset Reaction(s) Facility (3 sources) Chlorhexidine Drug Allergy [facility] Work Phone: (3 sources) natural latex rubber Allergy to substance (finding) [facility] Medications Completed/Discontinued Medications Medication Drug Class(es) Dates Sig (Normalized) Sig (Original) acetaminophen 325 mg / HYDROcodone bitartrate 5 mg oral tablet (2 sources) Opioid Agonist Start: 03-12-2020 take 1 tablet by mouth every six hours as needed for pain HYDROcodone-Acetami nophen 5-325 MG Oral Tablet TAKE 1 TABLET EVERY 6 HOURS NEEDED FOR PAIN. Quantity: 20 Refills: 0 Nicolas Gaytan MD Start : 12-Mar-2020 Active adapalene 0.003 mg/mg / benzoyl peroxide 0.025 mg/mg topical gel (3 sources) Retinoid Start: 10-18-2019 Epiduo Forte 0.3-2.5 % External Gel apply topically daily to affected area Quantity: 1 Refills: 11 Nicolas Gaytan MD Start : 18-Oct-2019 Active 45 GM Pump Btl 60 actuat albuterol 0.09 mg/actuat metered dose inhaler (3 sources) beta2-Adrenergic Agonist Start: 10-18-2019 take 2 puff(s) by mouth every four hours for wheezing Albuterol Sulfate HFA 108 (90 Base) MCG/ACT Inhalation Aerosol Solution inhale 2 puffs by mouth every 4 hours if needed for wheezing Quantity: 1 Refills: 11 Nicolas Gaytan MD Start : 18-Oct-2019 Active 18 GM Inhaler clindamycin 10 mg/ml topical solution (3 sources) Lincosamide Antibacterial Start: 10-18-2019 Clindamycin Phosphate 1 % External Solution APPLY SPARINGLY AND GENTLY MASSAGE INTO AFFECTED AREA(S) 1 TO 2 TIMES DAILY. Quantity: 2 Refills: 11 Nicolas Gaytan MD Start : 18-Oct-2019 Active 60 ML Bottle cyclobenzaprine hydrochloride 10 mg oral tablet (3 sources) Muscle Relaxant Start: 10-18-2019 take 1 tablet by mouth three times daily as needed Cyclobenzaprine HCl - 10 MG Oral Tablet TAKE 1 TABLET 3 TIMES DAILY NEEDED. Quantity: 60 Refills: 11 Nicolas Gaytan MD Start : 18-Oct-2019 Active labetalol hydrochloride 200 mg oral tablet (3 sources) beta-Adrenergic Steven Start: 10-18-2019 take 1 tablet by mouth twice daily Labetalol HCl - 200 MG Oral Tablet TAKE 1 TABLET TWICE DAILY. Quantity: 60 Refills: 11 Nicolas Gaytan MD Start : 18-Oct-2019 Active loratadine 10 mg oral tablet (3 sources) Start: 10-18-2019 take 1 tablet by mouth at bedtime Loratadine 10 MG Oral Tablet TAKE 1 TABLET AT BEDTIME. Quantity: 30 Refills: 11 Nicolas Gaytan MD Start : 18-Oct-2019 Active montelukast 10 mg oral tablet (3 sources) Leukotriene Receptor Antagonist Start: 10-18-2019 take 1 tablet by mouth once daily Montelukast Sodium 10 MG Oral Tablet TAKE 1 TABLET DAILY. Quantity: 30 Refills: 11 Nicolas Gaytan MD Start : 18-Oct-2019 Active phentermine hydrochloride 37.5 mg oral tablet (3 sources) Sympathomimetic Amine Anorectic Start: 12-01-2019 take 1 tablet by mouth once daily Phentermine HCl - 37.5 MG Oral Tablet TAKE 1 TABLET DAILY. Quantity: 30 Refills: 0 Nicolas Gaytan MD Start : 01-Dec-2019 Active RABEprazole sodium 20 mg delayed release oral tablet (3 sources) Proton Pump Inhibitor Start: 10-18-2019 take 1 tablet by mouth once daily RABEprazole Sodium 20 MG Oral Tablet Delayed Release TAKE 1 TABLET DAILY. Quantity: 30 Refills: 11 Nicolas Gaytan MD Start : 18-Oct-2019 Active tiZANidine 4 mg oral tablet (3 sources) Central alpha-2 Adrenergic Agonist Start: 10-18-2019 take 1 tablet by mouth at bedtime tiZANidine HCl - 4 MG Oral Tablet TAKE 1 TABLET AT BEDTIME. Quantity: 30 Refills: 11 Nicolas Gaytan MD Start : 18-Oct-2019 Active triamcinolone acetonide 1 mg/ml topical cream (3 sources) Corticosteroid Start: 12-01-2019 Triamcinolone Acetonide 0.1 % External Cream APPLY 2-3 TIMES DAILY TO AFFECTED AREA(S). Quantity: 1 Refills: 1 Nicolas Gaytan MD Start : 01-Dec-2019 Active 30 GM Tube Problems Active Problems Problem Classification Problem Date Documented Da te Episodic/Chronic Anxiety disorders (3 sources) Generalized anxiety disorder; Translations: [Generalized anxiety disorder] Chronic Asthma (3 sources) Asthma; Translations: [Asthma] Chronic Attention-deficit conduct and disruptive behavior disorders (3 sources) Attention deficit hyperactivity disorder, predominantly inattentive type; Translations: [ADD (attention deficit disorder)] Chronic Calculus of urinary tract (3 sources) Kidney stone; Translations: [Renal stones] Episodic Conditions associated with dizziness or vertigo (3 sources) Meniere's disease; Translations: [Meniere disease] Chronic Esophageal disorders (3 sources) Gastroesophageal reflux disease; Translations: [GERD (gastroesophageal reflux disease)] Chronic Essential hypertension (3 sources) Hypertensive disorder; Translations: [Hypertension] Chronic Mood disorders (3 sources) Depressive disorder; Translations: [Depression] Chronic Other nutritional; endocrine; and metabolic disorders (3 sources) Obesity; Translations: [Obesity] Chronic Other skin disorders (3 sources) Superficial acne vulgaris; Translations: [Superficial acne vulgaris] Episodic Viral infection (2 sources) Herpes zoster without complication; Translations: [Herpes zoster without complication] Episodic Past or Other Problems Problem Classification Problem Date Documented Da te Episodic/Chronic NEGATED: Highlighted row has not occurred!Residual codes; unclassified (8 sources) Disease Episodic Results Test Name Value Interpretation Reference Range Facil ity Vital Signs Date Time Vital Sign Value Performing Clinician Facility 01-03-2020 12:090400 BMI (Body Mass Index) 37.36 kg/m2 Nicolas Gaytan [facility] Work Phone: 01-03-2020 12:09-0400 Body Temperature 98 [degF] Nicolas Gaytan -[facility] Work Phone: 01-03-2020 12:09-0400 Body weight 101.83 kg Nicolas Gaytan -[employer] [facility] Work Phone: 01-03-2020 12:09-0400 BP Diastolic 70 mm[Hg] [facility] Work Phone: 01-03-2020 12:09-0400 BP Systolic 108 mm[Hg] [facility] Work Phone: 01-03-2020 12:09-0400 BSA (Body Surface Area) 2.08 m2 [facility] Work Phone: 01-03-2020 12:09-0400 Height 165.1 cm [facility] Work Phone: 01-03-2020 12:09-0400 Pulse (Heart Rate) 84 /min [facility] Work Phone: 01-03-2020 12:09-0400 Pulse Oximetry 97 % [facility] Work Phone: Encounters Encounter Date Encounter Type Care Provider Facility Start: 01-31-2020 Patient encounter procedure [facility] Work Phone: Start: 01-03-2020 Patient encounter procedure [facility] Work Phone: Start: 12-01-2019 Patient encounter procedure [facility] Work Phone: Start: 08-13-2018 Patient encounter procedure Facility:[id number] Procedures Date Procedure Procedure Detail Performing Clinician Tonsillectomy and adenoidectomy Nicolassimin Gaytan Payers Date Payer Category Payer Unknown [id number] Unknown [id number] Social History Date Type Detail Facility NEGATED: Highlighted row - - [employer] [facility] Work Phone: Functional Status Date Assessment Result Facility NEGATED: Highlighted row Functional performance Functional status health issues are not documented Disease [employer] [facility] Work Phone: Mental Status Date Assessment Result Facility NEGATED: Highlighted row Cognitive function [Interpretation] Cognitive status health issues are not documented Disease [employer] [facility] Work Phone: Summary Purpose Family History No Family History Records Found Grandparent Name Dates Details Family history of Primary ma lignant neoplasm of female genital organ(184.9, C57.9) Status:Active Mother Name Dates Details Family history of Primary ma lignant neoplasm of female genital organ(184.9, C57.9) Status:Active Family history of hypertensi on(V17.49, Z82.49) Status:Active Father Name Dates Details No pertinent family history( V49.89, Z78.9) Status:Active Brother Name Dates Details Family history of Crohn's di sease(V18.59, Z83.79) Status:Active Grandparent Name Dates Details Family history of Primary ma lignant neoplasm of female genital organ(184.9, C57.9) Status:Active Mother Name Dates Details Family history of hypertensi on(V17.49, Z82.49) Status:Active Family history of Primary ma lignant neoplasm of female genital organ(184.9, C57.9) Status:Active Father Name Dates Details No pertinent family history( V49.89, Z78.9) Status:Active Brother Name Dates Details Family history of Crohn's di sease(V18.59, Z83.79) Status:Active Grandparent Name Dates Details Family history of Primary ma lignant neoplasm of female genital organ(184.9, C57.9) Status:Active Mother Name Dates Details Family history of hypertensi on(V17.49, Z82.49) Status:Active Family history of Primary ma lignant neoplasm of female genital organ(184.9, C57.9) Status:Active Father Name Dates Details No pertinent family history( V49.89, Z78.9) Status:Active Brother Name Dates Details Family history of Crohn's di sease(V18.59, Z83.79) Status:Active Advance Directives No Advanced Directives Records FoundNo Advanced Directives Records FoundNo Advanced Directives Records Found Additional Source Comments INFORMATION SOURCE (unrecogn ized section and content) DATE CREATED AUTHOR AUTHOR'S ORGANFLEX ATION 01/23/2019 [facility] DATE CREATED AUTHOR AUTHOR'S ORGANFLEX ATION 11/06/2020 [facility] FOR RECORDS PERTAINING TO PATIENTS WHO ARE OR HAVE BEEN ENROLLED IN A CHEMICAL DEPENDENCY/SUBSTANCEABUSE PROGRAM, SOME INFORMATION MAY BE OMITTED. This clinical summary was aggregated from multiple sources. Caution should be exercised in using it in the provision of clinical care. This summary normalizes information from multiple sources, and as a consequence, information in this document may materially change the coding, format and clinical context of patient data. In addition, data may be omitted in some cases. CLINICAL DECISIONS SHOULD BE BASED ON THE PRIMARY CLINICAL RECORDS. [facility] [employer] [facility]. provides no warranty or guarantee of the accuracy or completeness of information in this document.
[2023-09-17 04:07] LABS: Chlamydia By Nucleic Acid AMP Negative (Negative); Gonococcus By Nucleic Acid AMP Negative (Negative)
[2023-09-18 16:09] LABS: HPV APTIMA, High Risk Positive (Negative)
== END | disposition home or self-care (01) ==
LOC: LABSPEC 15:48
PROVIDERS: PCP Family Medicine; Referring Provider Advanced Practice Midwife; Visit Provider Advanced Practice Midwife
DX: Z11.3 Encounter for screening for infections with a predominantly sexual mode of transmission (principal); Z12.4 Encounter for screening for malignant neoplasm of cervix
CPT/HCPCS: 87077; 87086; 87088; 87186; 87491; 87591; 87624; 88175; G0145

== ENCOUNTER → 2023-09-28 | Outpatient (CLI) | payer OTHER, SELFPAY ==
--- NOTE | 2023-09-28 17:03 | RAD_ITS ---
EXAM: XR ABDOMEN, 1 VIEW CLINICAL INDICATION: Calculus of ureter TECHNIQUE: Frontal supine view of the abdomen/pelvis. COMPARISON: CT scan of the abdomen and pelvis 07/30/2022. FINDINGS: LOWER THORAX: No acute pathology. GASTROINTESTINAL TRACT: Unremarkable. Non-obstructive. No bowel or stomach distention. ORGANS: Small calculi are seen overlying the kidneys bilaterally. No organomegaly. BONES/JOINTS: No acute pathology. SOFT TISSUES: No acute pathology. VASCULATURE: Miniscule calcification right lower pelvis likely phlebolith. OTHER FINDINGS: No definite significant calculi along the course of the ureters. RAD/Abdomen Single View IMPRESSION: 1. Small calculi are seen overlying the kidneys bilaterally. 2. No definite significant calculi along the course of the ureters. Electronically Signed: Dante Herrera MD at 2:13 EDT ,
== END | disposition home or self-care (01) ==
PROVIDERS: PCP Family Medicine; Referring Provider Urology; Visit Provider Urology
DX: N20.1 Calculus of ureter (principal)
CPT/HCPCS: 74018

== ENCOUNTER 2023-10-29 12:14 | Day surgery (SDC) | payer OTHER, SELFPAY ==
[2023-10-29] VITALS (7 sets, daily range): BP systolic 112–132; BP diastolic 67–87; PULSE 89–105; RESP 16; TEMP 36.1–36.9; O2SAT 94–99; BMI 33.7
[2023-10-29 12:51] LABS: Internal QC Validated? YES +Cl - CLEAR BKGD; Pregnancy, Urine Negative Negative
--- NOTE | 2023-10-29 12:56 | DCINST_ITS ---
Discharge Instructions Diet Discharge Diet: No restrictions Activity Discharge Activity: Return to Normal Activity Dressing / Incision Call your doctor if you observe: Fever of 101 or Higher, Inability to urinate and Inability to have a bowel movement Follow Up Care Please Follow Up With: Shannon Wilhelm MD When: The office will call her to make follow-up arrangements. Test Results: Test results from this visit will be discussed in further detail at your follow- up appointment, if applicable. Discharge Plan Admission Attending Provider: Shannon Wilhelm Primary Care Provider: Ioana Bourgeois Discharge Orders/Prescriptions Prescriptions: New oxycodone-acetaminophen [Percocet] 5-325 mg tablet 1 tab PO Q8H PRN (Reason: pain) 3 Days Qty: 10 0RF cephalexin [cephalexin] 500 mg capsule 500 mg PO Q12 3 Days Qty: 6 0RF Continued tizanidine 4 mg capsule 4 mg PO QHS PRN (Reason: Pain) cyclobenzaprine 10 mg tablet 10 mg PO TID labetalol 100 mg tablet 100 mg PO BID montelukast [Singulair] 10 mg tablet 10 mg PO QPM loratadine [Alavert] 10 mg tablet,disintegrating 10 mg PO DAILY albuterol sulfate [ProAir HFA] 90 mcg/actuation HFA aerosol inhaler 2 puff INHALATION Q4H PRN (Reason: shortness of breath or wheezing) clindamycin phosphate 1 % solution 1 applic TOPICAL DAILY Complete Multivitamin tablet 2 tab PO QHS gabapentin 300 mg capsule 300 mg PO BID buprenorphine HCl 75 mcg film 75 mcg buccal BID Patient Comments: TAKE 1 FILM BUCCALLYCTWICE DAILY fluoride (sodium) 1.1 % cream 1 applic dental BID ketoconazole 2 % cream 1 applic topical DAILY PRN (Reason: SKIN) clobetasol 0.05 % cream 1 applic topical DAILY PRN (Reason: skin irritation) citalopram 30 mg capsule 30 mg PO QHS sucralfate [Carafate] 1 gram tablet 1 g PO 4X/DAY famotidine 20 mg tablet 20 mg PO BID omeprazole magnesium [Acid Client Development Consultant (omeprazole)] 20 mg capsule,delayed release(DR/EC) 20 mg PO DAILY meloxicam 15 mg tablet 15 mg PO DAILY ergocalciferol (vitamin D2) [Vitamin D2] 1,250 mcg (50,000 unit) capsule 1,250 mcg PO QWEEK spironolactone 100 mg tablet 200 mg PO DAILY bupropion HCl 150 mg tablet extended release 24 hr 150 mg PO DAILY metformin 500 mg tablet extended release 24 hr 500 mg PO DAILY lisdexamfetamine [Vyvanse] 70 mg capsule 70 mg PO DAILY alprazolam 0.25 mg tablet 0.5 mg PO BID PRN PRN (Reason: anxiety) ondansetron 4 mg tablet,disintegrating 4 mg PO Q8H PRN PRN (Reason: nausea) promethazine 25 mg tablet 25 mg PO BID PRN PRN (Reason: nausea and vomiting) Referrals / Follow Up: Ioana Bourgeois DO [Primary Care Provider] - Disposition Disposition (needs filled in before D/C Order can be placed): Home, Self Care
--- NOTE | 2023-10-29 12:57 | OP.PCM_ITS ---
Problems Associated Problem List Diagnoses (1) Kidney calculi: Report of Operation Date of Procedure: 10/29/23 Pre-Operative Diagnosis: Left proximal ureteral and left renal stones Post-Operative Diagnosis: Same, right renal stone Surgery/Procedure Performed:: Cystoscopy, retrograde pyelograms bilaterally, left ureteral stent insertion, left renal extracorporal shockwave lithotripsy Surgeon: Shannon Wilhelm Type of Anesthesia: General Specimen's removed: None Description of Procedure: The patient is a 33-year-old female with a history of stones who presents for surgical intervention on the left. When seen in the office, she had a left proximal ureteral stone and a left renal stone. She has been continuing to have pain. She was taken to the operating room and placed on the operating room table. Anesthesia monitored the head, neck, airway, IV access and vital signs throughout the case. Once anesthesia was appropriately administered, the patient was placed into dorsolithotomy position and was prepped and draped in usual sterile fashion. The cystoscope was inserted through the urethra under direct visualization into the urinary bladder. The bladder mucosa was visualized in its entirety finding no evidence of mass, erythema, ulceration or foreign body. Using an 8 Green[place]ic cone-tip catheter, the right ureteral orifice was gently cannulated and contrast was injected in retrograde fashion under fluoroscopic visualization. This revealed no evidence of ureteral stones or filling defects. There is 1 stone approximately 5 mm in size in the lower pole of the right kidney and the lowest calyx. There is no hydronephrosis. This procedure was performed on the patient's left side revealing a large proximal ureteral calculus approximately 8 mm in size with no evidence of the second stone. The left ureter was cannulated with a 0.035 Glidewire which advanced easily into the renal pelvis pushing the stone with it. A 4.5 Greenlandic by 26 cm JJ stent was placed over the wire with good positioning in the renal pelvis as well as in the urinary bladder. The bladder was then emptied. The patient was then repositioned on the table. The left stone in the kidney was shocked with 3000 shocks and the stone appeared to be well fragmented at the conclusion of the case. The patient was then awakened and taken to the recovery room in good condition. There were no complications during this procedure. Grafts/Implants Used: 4.5 Greenlandic by 26 cm JJ stent Complications None Admit VTE Documentation VTE Present on Admission: Yes VTE Mechan Device Prophylaxis: SCD's VTE Pharm Prophylaxis ordered?: No Reason prophylaxis not ordered:: Treatment Not Indicated
[2023-10-29] MEDS: Lactated Ringers 1,000 ML 15 ML IV (13:15)
[2023-10-29] MEDS: Cefazolin 2 GM in 0.9% Normal Saline (100mL Bag) 100 ML IV (14:12)
[2023-10-29 14:33] LABS: Free T3 2.3 pg/mL (2.18-3.98); T4 Free Direct 0.84 ng/dL (0.76-1.46); Thyroid Stim Hormone (TSH) 0.34 uIU/mL (0.358-3.74)
[2023-10-29 15:02] LABS: HIV - WCH Non-Reactive (Nonreactive); Hepatitis B Surface Antigen Non-Reactive (Nonreactive); Hepatitis C Antibody Non-Reactive (Nonreactive); Rubella IgG Equiv (Nonreactive); Syphilis Antibodies Non-reactive
[2023-10-29] MEDS: Ketorolac 15 MG/ML Vial IM (15:45)
[2023-10-29] MEDS: Oxycodone/Apap 5/325 Tablet PO (16:26)
[2023-11-02 13:07] LABS: ANTINUCLEAR ANTIBODIES DIRECT Negative (Negative)
[2023-11-02 17:07] LABS: HSV 1 IgG < 0.91 index (0.00-0.90); HSV 2 IgG < 0.91 index (0.00-0.90); Thyroglobulin Antibody < 1.0 IU/mL (0.0-0.9); Thyroid Peroxidase AB < 9 IU/mL (0-34)
== END 2023-10-29 17:33 | disposition home or self-care (01) ==
LOC: SDC 12:14 → AC 12:15
PROVIDERS: Advanced Practice Midwife; PCP Family Medicine; Referring Provider Family Medicine; Visit Provider Urology
PROC: (CPT 50590; principal; 2023-10-29 13:35)
DX: N20.2 Calculus of kidney with calculus of ureter (principal); E11.9 Type 2 diabetes mellitus without complications; I10 Essential (primary) hypertension; J45.909 Unspecified asthma, uncomplicated; K21.9 Gastro-esophageal reflux disease without esophagitis; F32.A Depression, unspecified; F41.9 Anxiety disorder, unspecified; N13.30 Unspecified hydronephrosis; N39.0 Urinary tract infection, site not specified; E28.2 Polycystic ovarian syndrome; Z87.891 Personal history of nicotine dependence; Z79.84 Long term (current) use of oral hypoglycemic drugs; Z79.899 Other long term (current) drug therapy; Z79.51 Long term (current) use of inhaled steroids
CPT/HCPCS: 52356; 00873; 36415; 81025; 84439; 84443; 84481; 86038; 86225; 86235; 86376; 86695; 86696; 86703; 86762; 86780; 86800; 86803; 87340; J7120; J2405

== ENCOUNTER → 2023-11-09 | Outpatient (CLI) | payer OTHER, SELFPAY ==
--- NOTE | 2023-11-09 09:53 | RAD_ITS ---
HISTORY: KIDNEY STONES. TECHNIQUE: XR Abdomen 1 View. COMPARISON: 09/28/2023. FINDINGS: BOWEL GAS PATTERN: Paucity of bowel gas in the midabdomen. Moderate stool throughout the colon down to the level of the rectum. FREE AIR: Not assessed on supine view. CALCIFICATIONS: 4 mm calcification at the lower pole of the right kidney again seen. Interval placement of left double-J ureteral stent with the left renal calculi less well visualized. 4 mm calculus at the level of the left ureterovesical junction. 2 mm calcification along the distal end of the stent in the region of the bladder. BONES: Unremarkable. RAD/Abdomen Single View IMPRESSION: Interval placement of left ureteral stent with probable calculi at the left UVJ and bladder. Right nephrolithiasis. Electronically Signed: Karen Dillon MD at 9:27 EDT ,
[2023-11-09 12:15] LABS: Hematocrit 44.7 % (37-47); Hemoglobin 14.7 g/dL (12.0-15.0); Mean Corp Hgb Conc 32.9 g/dL (32-36); Mean Corpuscular Hgb 30.8 pg (27.0-32.0); Mean Corpuscular Volume 93.5 fL (81-99); Mean Platelet Vol. 8.9 fl (6.2-12.0); Platelet Count 407 K/mm3 (150-450); RBC Distribution Width SD 44.6 fl (35.1-43.9); Red Blood Count 4.78 M/mm3 (4.2-5.4); White Blood Count 15.2 K/mm3 (4.4-11.0)
[2023-11-09 13:34] LABS: Anion Gap 8 (5-15); BUN 19 mg/dL (7-18); BUN/Creat Ratio 17.4 RATIO (10-20); Calcium,Total 10.3 mg/dL (8.5-10.1); Chloride 99 mmol/L (98-107); Creatinine, Serum 1.09 mg/dL (0.55-1.02); EST Glomerular Filtration Rate 61 mL/min (>60); Est Glom Filt Rate - Afr Amer 74 mL/min (>60); Glucose 110 mg/dL (74-106); Potassium 4.5 mmol/L (3.5-5.1); Sodium Level 134 mmol/L (136-145)
== END | disposition home or self-care (01) ==
PROVIDERS: PCP Family Medicine; Referring Provider Urology; Visit Provider Urology
DX: N20.0 Calculus of kidney (principal)
CPT/HCPCS: 36415; 74018; 80048; 85027

== ENCOUNTER 2023-11-26 06:08 | Day surgery (SDC) | payer OTHER, SELFPAY ==
[2023-11-26] VITALS (8 sets, daily range): BP systolic 108–139; BP diastolic 73–96; PULSE 84–93; RESP 14–18; TEMP 36.1–36.2; O2SAT 93–97; BMI 33.6
[2023-11-26 06:24] LABS: Internal QC Validated? YES +Cl - CLEAR BKGD; Pregnancy, Urine Negative Negative
[2023-11-26] MEDS: Lactated Ringers 1,000 ML 15 ML IV (06:46)
[2023-11-26 07:04] LABS: Bedside Glucose 106 mg/dL (74-106)
--- NOTE | 2023-11-26 07:39 | PCM.OPRPT ---
Problems Associated Problem List Diagnoses (1) Kidney calculi: Report of Operation Date of Procedure: 11/26/23 Pre-Operative Diagnosis: right renal stone Post-Operative Diagnosis: same Surgery/Procedure Performed:: Right extracorporal shockwave lithotripsy Surgeon: Shannon Wilhelm Type of Anesthesia: General Specimen's removed: None Description of Procedure: The patient is a 33-year-old female with right renal stone who presents for shockwave lithotripsy. Informed consent has been obtained. The patient was taken to the operating room and placed on the lithotripsy table. Anesthesia monitored the head, neck, airway, IV access and vital signs throughout the case. Once anesthesia was appropriately administered, she was aligned with the machine. The stone was visible and 3000 shocks were applied. The stone appeared to be well fragmented at the conclusion of the case. She was awakened and taken to the recovery room in good condition. There were no complications during this procedure. Grafts/Implants Used: None Complications None Admit VTE Documentation VTE Present on Admission: Yes VTE Mechan Device Prophylaxis: SCD's VTE Pharm Prophylaxis ordered?: No Reason prophylaxis not ordered:: Treatment Not Indicated
--- NOTE | 2023-11-26 07:41 | DCINST_ITS ---
Discharge Instructions Diet Discharge Diet: No restrictions Activity Discharge Activity: Return to Normal Activity Dressing / Incision Call your doctor if you observe: Fever of 101 or Higher, Inability to urinate and Inability to have a bowel movement Follow Up Care Please Follow Up With: Shannon Wilhelm MD When: In the office in 2 to 3 weeks with a KUB Test Results: Test results from this visit will be discussed in further detail at your follow- up appointment, if applicable. Discharge Plan Admission Attending Provider: Shannon Wilhelm Primary Care Provider: Ioana Bourgeois Instructions Print Language: Hungarian Discharge Orders/Prescriptions Prescriptions: New oxycodone-acetaminophen [Percocet] 5-325 mg tablet 1 tab PO Q8H PRN (Reason: pain) 3 Days Qty: 10 0RF cephalexin 500 mg capsule 500 mg PO Q12 3 Days Qty: 6 0RF Continued tizanidine 4 mg capsule 4 mg PO QHS PRN (Reason: Pain) cyclobenzaprine 10 mg tablet 10 mg PO TID labetalol 100 mg tablet 100 mg PO BID montelukast [Singulair] 10 mg tablet 10 mg PO QPM loratadine [Alavert] 10 mg tablet,disintegrating 10 mg PO DAILY albuterol sulfate [ProAir HFA] 90 mcg/actuation HFA aerosol inhaler 2 puff INHALATION Q4H PRN (Reason: shortness of breath or wheezing) clindamycin phosphate 1 % solution 1 applic TOPICAL DAILY Complete Multivitamin tablet 2 tab PO QHS gabapentin 300 mg capsule 300 mg PO BID buprenorphine HCl 75 mcg film 75 mcg buccal BID Patient Comments: TAKE 1 FILM BUCCALLYCTWICE DAILY fluoride (sodium) 1.1 % cream 1 applic dental BID ketoconazole 2 % cream 1 applic topical DAILY PRN (Reason: SKIN) clobetasol 0.05 % cream 1 applic topical DAILY PRN (Reason: skin irritation) citalopram 30 mg capsule 30 mg PO QHS sucralfate [Carafate] 1 gram tablet 1 g PO 4X/DAY famotidine 20 mg tablet 20 mg PO BID omeprazole magnesium [Acid Weaving Professor (omeprazole)] 20 mg capsule,delayed release(DR/EC) 20 mg PO DAILY meloxicam 15 mg tablet 15 mg PO DAILY ergocalciferol (vitamin D2) [Vitamin D2] 1,250 mcg (50,000 unit) capsule 1,250 mcg PO QWEEK spironolactone 100 mg tablet 200 mg PO DAILY bupropion HCl 150 mg tablet extended release 24 hr 150 mg PO DAILY metformin 500 mg tablet extended release 24 hr 500 mg PO DAILY lisdexamfetamine [Vyvanse] 70 mg capsule 70 mg PO DAILY alprazolam 0.25 mg tablet 0.5 mg PO BID PRN PRN (Reason: anxiety) ondansetron 4 mg tablet,disintegrating 4 mg PO Q8H PRN PRN (Reason: nausea) promethazine 25 mg tablet 25 mg PO BID PRN PRN (Reason: nausea and vomiting) lorazepam [Ativan] 1 mg tablet 1 mg PO BID PRN (Reason: anxiety) Qty: 5 0RF Referrals / Follow Up: Ioana Bourgeois DO [Primary Care Provider] - Disposition Disposition (needs filled in before D/C Order can be placed): Home, Self Care
[2023-11-26] MEDS: Cefazolin 2 GM in 0.9% Normal Saline (100mL Bag) 100 ML IV (07:44)
== END 2023-11-26 10:11 | disposition home or self-care (01) ==
LOC: SDC 06:08 → AC 06:09
PROVIDERS: PCP Family Medicine; Referring Provider Urology; Visit Provider Urology
PROC: (CPT 50590; principal; 2023-11-26 07:20)
DX: N20.0 Calculus of kidney (principal); E11.9 Type 2 diabetes mellitus without complications; I10 Essential (primary) hypertension; Z87.442 Personal history of urinary calculi; J45.909 Unspecified asthma, uncomplicated; N39.0 Urinary tract infection, site not specified; N13.30 Unspecified hydronephrosis
CPT/HCPCS: 50590; 00873; 81025; 82962; J7120; J2405

== ENCOUNTER → 2023-12-09 | Outpatient (CLI) | payer OTHER, SELFPAY ==
[2023-12-09 17:06] LABS: Absolute Lymphocyte Count 2.45 X10^3/uL (0.83-4.51); Absolute Neutrophil Count 7.8 X10^3/uL (2.0-7.7); Basophil# 0.07 X10^3/uL; Basophil% 0.6 % (0-1); Eosinophil# 0.14 X10^3/uL; Eosinophils% 1.3 % (0-5); Hematocrit 42.1 % (37-47); Hemoglobin 13.9 g/dL (12.0-15.0); Lymphocyte # 2.45 X10^3/ul (0.83-4.51); Lymphocyte % 22.2 % (19-41); Mean Corpuscular Hgb 30.6 pg (27.0-32.0); Mean Corpuscular Volume 92.7 fL (81-99); Mean Platelet Vol. 9.1 fl (6.2-12.0); Monocyte# 0.56 X10^3/uL; Monocyte% 5.1 % (0-10); NRBC Flagged by Analyzer 0 % (0-5); Neutrophil # 7.78 X10^3/uL (2.7-7.7); Neutrophil % 70.3 % (47-70); Platelet Count 334 K/mm3 (150-450); RBC Distribution Width CV 12.6 % (11.6-14.6); RBC Distribution Width SD 42.7 fl (35.1-43.9); Red Blood Count 4.54 M/mm3 (4.2-5.4); White Blood Count 11.1 K/mm3 (4.4-11.0)
[2023-12-09 17:29] LABS: PTHIN 42.5 pg/mL (18.4-80.1)
[2023-12-09 17:32] LABS: Vitamin D,25 Hydroxy 43.6 ng/mL
[2023-12-09 17:43] LABS: Anion Gap 4 (5-15); BUN 15 mg/dL (7-18); BUN/Creat Ratio 17.2 RATIO (10-20); Calcium,Total 9.3 mg/dL (8.5-10.1); Chloride 106 mmol/L (98-107); Creatinine, Serum 0.87 mg/dL (0.55-1.02); EST Glomerular Filtration Rate 79 mL/min (>60); Est Glom Filt Rate - Afr Amer 95 mL/min (>60); Glucose 95 mg/dL (74-106); Potassium 3.9 mmol/L (3.5-5.1); Sodium Level 138 mmol/L (136-145); Thyroid Stim Hormone (TSH) 0.84 uIU/mL (0.358-3.74)
[2023-12-14 16:09] LABS: Immunoglobulin D Quant 1.68 mg/dL (<14.11); PROEL- A/G Ratio 1.2 (0.7-1.7); PROEL- Albumin 3.7 g/dL (2.9-4.4); PROEL- Alpha-1 Globulin 0.2 g/dL (0.0-0.4); PROEL- Alpha-2 Globulin 0.8 g/dL (0.4-1.0); PROEL- Beta Globulin 1.3 g/dL (0.7-1.3); PROEL- Gamma Globulin 0.9 g/dL (0.4-1.8); PROEL- Globulin, Total 3.2 g/dL (2.2-3.9); PROEL- TOTAL PROTEIN 6.9 g/dL (6.0-8.5); PROEL-M-Spike Not Observed g/dL (Not Observed)
== END | disposition home or self-care (01) ==
LOC: LAB 15:50
PROVIDERS: PCP Family Medicine; Referring Provider Family Medicine; Visit Provider Family Medicine
DX: E83.52 Hypercalcemia (principal); D72.9 Disorder of white blood cells, unspecified; R79.89 Other specified abnormal findings of blood chemistry
CPT/HCPCS: 36415; 80048; 82306; 82784; 83970; 84165; 84443; 85025

== ENCOUNTER → 2023-12-11 | Outpatient (CLI) | payer OTHER, SELFPAY ==
--- NOTE | 2023-12-11 09:24 | RAD_ITS ---
EXAM: XR ABDOMEN, 1 VIEW CLINICAL INDICATION: KUB- KIDNEY STONES TECHNIQUE: Frontal supine view of the abdomen/pelvis. COMPARISON: 11/09/2023. FINDINGS: LOWER THORAX: No acute pathology. INTRAPERITONEAL SPACE: No obvious radiopaque calculi in the abdomen and pelvis. GASTROINTESTINAL TRACT: Fecal contents in the colon. Non-obstructive. No bowel or stomach distention. ORGANS: Unremarkable as visualized. No organomegaly. No abnormal calcifications. BONES/JOINTS: No acute pathology. SOFT TISSUES: No acute pathology. TUBES, LINES AND DEVICES: Interval removal of double-J stent in the left ureter. RAD/Abdomen Single View IMPRESSION: 1. No obvious radiopaque stones in the abdomen and pelvis. 2. Interval removal of double-J stent in the left ureter. Electronically Signed: Neeraj Casillas MD at 16:00 EDT ,
== END | disposition home or self-care (01) ==
LOC: MTRAD 09:23
PROVIDERS: PCP Family Medicine; Referring Provider Urology; Visit Provider Urology
DX: N20.0 Calculus of kidney (principal)
CPT/HCPCS: 74018

== ENCOUNTER → 2024-06-30 | Outpatient (CLI) | payer OTHER, SELFPAY ==
[2024-06-30 16:38] LABS: Amphetamine Urine VISTA POSITIVE (<1000 ng/mL); Barbiturate Urine VISTA NEGATIVE (< 200 ng/mL); Benzodiazepine Urine VISTA NEGATIVE (< 200 ng/mL); Cocaine Urine VISTA NEGATIVE (< 300 ng/mL); Ecstacy Urine VISTA POSITIVE (< 500 ng/mL); Methadone Urine VISTA NEGATIVE (< 300 ng/mL); PCP Urine VISTA NEGATIVE (< 25 ng/mL); THC Urine VISTA NEGATIVE (< 50 ng/mL); Vista UDS pH Range 5
== END | disposition home or self-care (01) ==
PROVIDERS: PCP Family Medicine; Referring Provider Family Medicine; Visit Provider Family Medicine
DX: Z51.81 Encounter for therapeutic drug level monitoring (principal); Z79.899 Other long term (current) drug therapy
CPT/HCPCS: 80307